=== PATIENT | male | born 1960 | race African-American/Black ===

== ENCOUNTER 2023-02-16 12:30 | Inpatient (IN) | payer OTHER ==
[~2023-02-16 12:30] MED LIST: Iopamidol-370 76% 500 ML MDV (1 ML CHARGE) ONE
[2023-02-16] MEDS ORDERED: Ondansetron ODT 4 MG TAB PO PRN (16:35)
[2023-02-16] MEDS ORDERED: Acetaminophen 325 MG TAB PO PRN (16:35)
[2023-02-16] MEDS ORDERED: Calcium Carbonate 500 MG ChewTAB PO PRN (16:35)
[2023-02-16] MEDS ORDERED: Ondansetron PF 4 MG/2 ML Vial IVP PRN (16:35)
[2023-02-16] MEDS ORDERED: hydrALAZINE 25 MG TAB PO PRN (16:48)
[2023-02-16 17:11] VITALS: BMI 28.0
[2023-02-16] MEDS: Cefepime 2 GM in Sodium Chloride 0.9% 100 ML IVPB SCH (19:13)
[2023-02-16] MEDS: Gabapentin 300 MG CAP PO SCH (20:40)
[2023-02-16] MEDS: Thiamine 100 MG TAB PO SCH (20:41)
[2023-02-16] MEDS: NIFEdipine XL 30 MG ER.TAB PO SCH (20:41)
[2023-02-16] MEDS: Senokot S 8.6-50 MG TAB PO SCH (20:41)
[2023-02-16] MEDS: Folic Acid 1 MG TAB PO SCH (20:41)
[2023-02-16] MEDS: Famotidine 20 MG TAB PO SCH (20:41)
[2023-02-16] MEDS: Multivit, Therapeutic 1 TAB PO SCH (20:41)
[2023-02-16] MEDS: HYDROcodone/Acetaminophen 5/325 mg Tablet PO PRN (20:42)
[2023-02-16] MEDS: Enoxaparin 40 MG (0.4 mL) SYRINGE SC SCH (20:43)
[2023-02-16] MEDS ORDERED: Vancomycin 1 GM in Premix 1 BAG IVPB SCH (21:00)
[2023-02-16 22:41] LABS: Vancomycin, Trough 12.6 ug/mL
[2023-02-16] MEDS ORDERED: Vancomycin (BATCH) 1.5 GM in Premix 1 BAG IVPB SCH (23:00)
[2023-02-17] MEDS: Vancomycin (BATCH) 1.75 GM in Premix 1 BAG IVPB SCH ×2 (00:18→11:04)
[2023-02-17] MEDS: HYDROcodone/Acetaminophen 5/325 mg Tablet PO PRN ×4 (00:45→21:16)
[2023-02-17] MEDS: Cefepime 2 GM in Sodium Chloride 0.9% 100 ML IVPB SCH ×2 (05:20→16:53)
[2023-02-17 06:08] LABS: #Basophils 0.1 thou/uL (0.0-0.2); #Eosinphils 0.2 thou/uL (0.0-0.7); #Monocytes 2.7 thou/uL (0.11-0.59); #Neutrophils 14.3 thou/uL (1.40-6.50); %Basophils 0.6 % (0.0-1.0); %Eosinophils 0.8 % (0.0-10.0); %Lymphocytes 8.9 % (21.0-51.0); %Monocytes 13.8 % (0.0-10.0); %Neutrophils 72.2 % (42.0-75.0); Hematocrit 36.4 % (42.0-52.0); Hemoglobin 12.1 g/dL (14.0-18.0); Mean Corpuscular HGB CONC 33.2 g/dL (32.0-36.0); Mean Corpuscular Hemoglobin 30.4 pg (27.0-31.0); Mean Corpuscular Volume 91.5 fl (78.0-98.0); Mean Platelet Volume 10.2 fL (7.4-10.4); Platelet Count 522 10x3/uL (130-400); Red Blood Cell (RBC) Count 3.98 mill/uL (4.70-6.10); White Blood Cell (WBC) Count 19.7 10x3/uL (4.8-10.8)
[2023-02-17] MEDS: NIFEdipine XL 30 MG ER.TAB PO SCH ×2 (08:17→20:52)
[2023-02-17] MEDS: Famotidine 20 MG TAB PO SCH ×2 (08:17→20:52)
[2023-02-17] MEDS: Senokot S 8.6-50 MG TAB PO SCH ×2 (08:17→20:57)
[2023-02-17] MEDS: Gabapentin 300 MG CAP PO SCH ×2 (08:17→20:49)
[2023-02-17] MEDS: Saccharomyces boulardii 250 MG CAP PO SCH (08:17)
[2023-02-17 12:20] LABS: Albumin 2.8 g/dL (3.4-4.8)
[2023-02-17 12:21] LABS: Chloride 103 mmol/L (98-107); Potassium 3.9 mmol/L (3.5-5.1); Sodium 137 mmol/L (136-145)
[2023-02-17 12:22] LABS: Calcium 9.3 mg/dL (7.8-10.44); Glucose 74 mg/dL (80-115)
[2023-02-17 12:23] LABS: Globulin 4.3 g/dL (2.4-3.5); Protein, Total 7.1 g/dL (5.8-8.1)
[2023-02-17 12:24] LABS: Anion Gap 16 mmol/L (10-20); Bilirubin, Total 1.2 mg/dL (0.2-1.2); Carbon Dioxide 22 mmol/L (23-31)
[2023-02-17 12:25] LABS: Alkaline Phosphatase 162 U/L (40-110)
[2023-02-17 12:26] LABS: Calc. Creatinine Clearance 117 mL/min (70-130); Estimated GFR 91
[2023-02-17 12:27] LABS: BUN (Urea Nitrogen) 11 mg/dL (8.4-25.7)
[2023-02-17 12:28] LABS: ALT (SGPT) 199 U/L (8-55); AST (SGOT) 88 U/L (5-34)
[2023-02-17] MEDS ORDERED: HYDROcodone/Acetaminophen 5/325 mg Tablet PO PRN (20:40)
[2023-02-17] MEDS: Multivit, Therapeutic 1 TAB PO SCH (20:52)
[2023-02-17] MEDS: Thiamine 100 MG TAB PO SCH (20:52)
[2023-02-17] MEDS: Folic Acid 1 MG TAB PO SCH (20:52)
[2023-02-17] MEDS: Enoxaparin 40 MG (0.4 mL) SYRINGE SC SCH (20:56)
[2023-02-18] MEDS: Vancomycin (BATCH) 1.75 GM in Premix 1 BAG IVPB SCH ×2 (01:00→11:28)
[2023-02-18] MEDS: Cefepime 2 GM in Sodium Chloride 0.9% 100 ML IVPB SCH ×2 (05:35→16:47)
[2023-02-18 06:17] LABS: Hemoglobin 10.9 g/dL (14.0-18.0); Manual Diff?? YES; Mean Corpuscular Hemoglobin 30.4 pg (27.0-31.0); Mean Corpuscular Volume 91.9 fl (78.0-98.0); Mean Platelet Volume 10.1 fL (7.4-10.4); Platelet Count 566 10x3/uL (130-400); RBC Distribution Width 13.1 % (11.5-14.5); Red Blood Cell (RBC) Count 3.59 mill/uL (4.70-6.10); White Blood Cell (WBC) Count 16.3 10x3/uL (4.8-10.8)
[2023-02-18 06:44] LABS: Delete Auto Diff?? YES
[2023-02-18 06:47] LABS: ALT (SGPT) 162 U/L (8-55); AST (SGOT) 88 U/L (5-34); Albumin 2.7 g/dL (3.4-4.8); Alkaline Phosphatase 170 U/L (40-110); Anion Gap 11 mmol/L (10-20); BUN (Urea Nitrogen) 10 mg/dL (8.4-25.7); Bilirubin, Total 0.8 mg/dL (0.2-1.2); Calc. Creatinine Clearance 133 mL/min (70-130); Calcium 8.9 mg/dL (7.8-10.44); Carbon Dioxide 26 mmol/L (23-31); Chloride 104 mmol/L (98-107); Estimated GFR 98; Globulin 4.2 g/dL (2.4-3.5); Glucose 101 mg/dL (80-115); Potassium 3.7 mmol/L (3.5-5.1); Protein, Total 6.9 g/dL (5.8-8.1); Sodium 137 mmol/L (136-145)
[2023-02-18 07:04] LABS: Hep A IgM AB Non-Reactive S/CO (NonReactive); Hep B Surf Ag Non-Reactive S/CO (NonReactive); Hep C IgG Ab Non-Reactive S/CO (NonReactive); Hep C Index 0.32 S/CO (0-0.79); Hepatitis B Core IgM Abs Non-Reactive S/CO (NonReactive)
[2023-02-18] MEDS: HYDROcodone/Acetaminophen 5/325 mg Tablet PO PRN ×3 (07:29→22:35)
[2023-02-18 08:13] LABS: Band 6 % (5-11); Eosinophils 1 % (0-10); Lymphocytes 11 % (21-51); Metamyelocyte 1 % (0-0); Monocytes 9 % (0-10); Myelocyte 1 % (0-0); Neutrophil 71 % (42-75)
[2023-02-18 08:14] LABS: Platelet Adequacy Comment Platelets Increased; Polychromasia SLIGHT = 2-3 cells (100X) (0-2/hpf)
[2023-02-18] MEDS: Saccharomyces boulardii 250 MG CAP PO SCH (08:24)
[2023-02-18] MEDS: NIFEdipine XL 30 MG ER.TAB PO SCH ×2 (08:24→22:33)
[2023-02-18] MEDS: Famotidine 20 MG TAB PO SCH ×2 (08:24→22:32)
[2023-02-18] MEDS: Senokot S 8.6-50 MG TAB PO SCH ×2 (08:24→22:34)
[2023-02-18] MEDS: Gabapentin 300 MG CAP PO SCH ×2 (08:24→22:32)
[2023-02-18 10:46] LABS: Vancomycin, Trough 18.1 ug/mL
[2023-02-18] MEDS ORDERED: PROPOFOL 20 ML ONE (12:15)
[2023-02-18] MEDS ORDERED: Lidocaine 1% PF 5 ML VIAL ONE (12:33)
[2023-02-18] MEDS ORDERED: fentaNYL PF 100 MCG/2 ML SYRINGE ONE ×2 (12:36→12:49)
[2023-02-18] MEDS ORDERED: Ondansetron PF 4 MG/2 ML Vial ONE (12:50)
[2023-02-18] MEDS ORDERED: Ondansetron HCl/PF 4 MG/2 ML Vial IVP PRN (13:12)
[2023-02-18] MEDS ORDERED: Promethazine HCl 25 MG/ML VIAL IM PRN (13:12)
[2023-02-18] MEDS ORDERED: fentaNYL 50 mcg/mL 1 mL Vial ONE ×2 (13:25→13:36)
[2023-02-18] MEDS: Lorazepam 1 MG TAB PO PRN (14:26)
[2023-02-18] MEDS: Enoxaparin 40 MG (0.4 mL) SYRINGE SC SCH (22:31)
[2023-02-18] MEDS: Multivit, Therapeutic 1 TAB PO SCH (22:34)
[2023-02-18] MEDS: Folic Acid 1 MG TAB PO SCH (22:34)
[2023-02-18] MEDS: Thiamine 100 MG TAB PO SCH (22:34)
[2023-02-19] MEDS: Vancomycin (BATCH) 1.75 GM in Premix 1 BAG IVPB SCH ×2 (00:45→11:50)
[2023-02-19] MEDS: HYDROcodone/Acetaminophen 5/325 mg Tablet PO PRN ×4 (04:19→21:59)
[2023-02-19] MEDS: Cefepime 2 GM in Sodium Chloride 0.9% 100 ML IVPB SCH (04:20)
[2023-02-19 07:09] LABS: Hematocrit 33.5 % (42.0-52.0); Hemoglobin 10.8 g/dL (14.0-18.0); Manual Diff?? YES; Mean Corpuscular HGB CONC 32.2 g/dL (32.0-36.0); Mean Corpuscular Hemoglobin 30.1 pg (27.0-31.0); Mean Corpuscular Volume 93.3 fl (78.0-98.0); Platelet Count 603 10x3/uL (130-400); RBC Distribution Width 13.4 % (11.5-14.5); Red Blood Cell (RBC) Count 3.59 mill/uL (4.70-6.10); White Blood Cell (WBC) Count 13.6 10x3/uL (4.8-10.8)
[2023-02-19 07:29] LABS: Delete Auto Diff?? YES
[2023-02-19 07:39] LABS: Anion Gap 10 mmol/L (10-20); BUN (Urea Nitrogen) 9 mg/dL (8.4-25.7); Calc. Creatinine Clearance 128 mL/min (70-130); Calcium 8.5 mg/dL (7.8-10.44); Carbon Dioxide 25 mmol/L (23-31); Chloride 104 mmol/L (98-107); Estimated GFR 97; Glucose 124 mg/dL (80-115); Potassium 3.8 mmol/L (3.5-5.1); Sodium 135 mmol/L (136-145)
[2023-02-19 07:40] LABS: Band 5 % (5-11); CellaVision Operator ID LAB.GE; Eosinophils 3 % (0-10); Lymphocytes 5 % (21-51); Monocytes 18 % (0-10); Neutrophil 65 % (42-75); Platelet Adequacy Comment Platelets Increased; Polychromasia MODERATE = 3-4 cells HPF (0-2); Reactive Lymphocytes 3 % (0-10); Total Cell Count 101
[2023-02-19] MEDS: Gabapentin 300 MG CAP PO SCH ×2 (08:08→21:57)
[2023-02-19] MEDS: Famotidine 20 MG TAB PO SCH ×2 (08:08→21:57)
[2023-02-19] MEDS: Senokot S 8.6-50 MG TAB PO SCH ×2 (08:09→22:01)
[2023-02-19] MEDS: Saccharomyces boulardii 250 MG CAP PO SCH (08:09)
[2023-02-19] MEDS: NIFEdipine XL 30 MG ER.TAB PO SCH ×2 (08:09→21:57)
[2023-02-19] MEDS: Morphine 4 MG/ML VIAL SLOW IVP PRN (09:34)
[2023-02-19] MEDS ORDERED: Lidocaine 4% Topical Sol 50 ML BOT TOP SCH (11:15)
[2023-02-19] MEDS: CEFAZOLIN 2 GM in Sodium Chloride 0.9% 100 ML IVPB SCH (16:14)
[2023-02-19] MEDS: Thiamine 100 MG TAB PO SCH (21:57)
[2023-02-19] MEDS: Folic Acid 1 MG TAB PO SCH (21:57)
[2023-02-19] MEDS: Enoxaparin 40 MG (0.4 mL) SYRINGE SC SCH (22:00)
[2023-02-19] MEDS: Multivit, Therapeutic 1 TAB PO SCH (22:00)
[2023-02-20] MEDS: Lorazepam 1 MG TAB PO PRN (00:05)
[2023-02-20] MEDS: CEFAZOLIN 2 GM in Sodium Chloride 0.9% 100 ML IVPB SCH ×4 (00:05→23:02)
[2023-02-20] MEDS: Senokot S 8.6-50 MG TAB PO SCH ×2 (08:30→21:12)
[2023-02-20] MEDS: NIFEdipine XL 30 MG ER.TAB PO SCH ×2 (08:31→21:13)
[2023-02-20] MEDS: Famotidine 20 MG TAB PO SCH ×2 (08:31→21:12)
[2023-02-20] MEDS: Saccharomyces boulardii 250 MG CAP PO SCH (08:31)
[2023-02-20] MEDS: Gabapentin 300 MG CAP PO SCH ×2 (08:31→21:13)
[2023-02-20] MEDS: HYDROcodone/Acetaminophen 5/325 mg Tablet PO PRN ×3 (08:31→21:12)
[2023-02-20 08:42] LABS: Hematocrit 34.2 % (42.0-52.0); Manual Diff?? YES; Mean Corpuscular HGB CONC 32.2 g/dL (32.0-36.0); Mean Corpuscular Hemoglobin 30.1 pg (27.0-31.0); Mean Corpuscular Volume 93.7 fl (78.0-98.0); Mean Platelet Volume 9.9 fL (7.4-10.4); Platelet Count 707 10x3/uL (130-400); RBC Distribution Width 13.8 % (11.5-14.5); Red Blood Cell (RBC) Count 3.65 mill/uL (4.70-6.10); White Blood Cell (WBC) Count 13.9 10x3/uL (4.8-10.8)
[2023-02-20 08:48] LABS: Delete Auto Diff?? YES
[2023-02-20 09:04] LABS: ALT (SGPT) 142 U/L (8-55); AST (SGOT) 98 U/L (5-34); Albumin 2.8 g/dL (3.4-4.8); Alkaline Phosphatase 152 U/L (40-110); Anion Gap 12 mmol/L (10-20); BUN (Urea Nitrogen) 9 mg/dL (8.4-25.7); Bilirubin, Total 0.7 mg/dL (0.2-1.2); Calc. Creatinine Clearance 121 mL/min (70-130); Calcium 8.9 mg/dL (7.8-10.44); Carbon Dioxide 26 mmol/L (23-31); Chloride 104 mmol/L (98-107); Estimated GFR 94; Globulin 4.8 g/dL (2.4-3.5); Glucose 105 mg/dL (80-115); Potassium 4.1 mmol/L (3.5-5.1); Protein, Total 7.6 g/dL (5.8-8.1); Sodium 138 mmol/L (136-145)
[2023-02-20 09:23] LABS: Anisocytosis SLIGHT = 6-15 cells HPF (0-5); Band 4 % (5-11); CellaVision Operator ID LAB.NR; Eosinophils 3 % (0-10); Hypochromia SLIGHT = 6-15 cells HPF (0-5); Large Platelets 3.4 % (0-5); Lymphocytes 6 % (21-51); Macrocytosis MODERATE=16-30 cells HPF (0-5); Monocytes 16 % (0-10); Neutrophil 65 % (42-75); Nucleated RBC (Manual Ct) 1 % (0); Platelet Adequacy Comment Platelets Increased; Polychromasia SLIGHT = 2-3 cells HPF (0-2); Promyelocytes 4 % (0-0); Smudge Cells 3.4 %; Total Cell Count 117
[2023-02-20] MEDS ORDERED: Iopamidol-370 76% 500 ML MDV (1 ML CHARGE) ONE (11:21)
[2023-02-20] MEDS: Thiamine 100 MG TAB PO SCH (21:12)
[2023-02-20] MEDS: Multivit, Therapeutic 1 TAB PO SCH (21:12)
[2023-02-20] MEDS: Folic Acid 1 MG TAB PO SCH (21:12)
[2023-02-20] MEDS: Enoxaparin 40 MG (0.4 mL) SYRINGE SC SCH (21:14)
[2023-02-21] MEDS: Lorazepam 1 MG TAB PO PRN ×3 (01:18→23:05)
[2023-02-21] MEDS: HYDROcodone/Acetaminophen 5/325 mg Tablet PO PRN ×4 (04:11→23:05)
[2023-02-21] MEDS: CEFAZOLIN 2 GM in Sodium Chloride 0.9% 100 ML IVPB SCH ×3 (08:11→23:05)
[2023-02-21] MEDS: NIFEdipine XL 30 MG ER.TAB PO SCH ×2 (08:11→20:49)
[2023-02-21] MEDS: Gabapentin 300 MG CAP PO SCH ×2 (08:11→20:48)
[2023-02-21] MEDS: Senokot S 8.6-50 MG TAB PO SCH ×2 (08:12→20:49)
[2023-02-21] MEDS: Saccharomyces boulardii 250 MG CAP PO SCH (08:13)
[2023-02-21] MEDS: Famotidine 20 MG TAB PO SCH ×2 (08:13→20:48)
[2023-02-21 09:09] LABS: Hematocrit 32.8 % (42.0-52.0); Hemoglobin 10.6 g/dL (14.0-18.0); Manual Diff?? YES; Mean Corpuscular HGB CONC 32.3 g/dL (32.0-36.0); Mean Corpuscular Hemoglobin 30.8 pg (27.0-31.0); Mean Corpuscular Volume 95.3 fl (78.0-98.0); Mean Platelet Volume 9.5 fL (7.4-10.4); Platelet Count 682 10x3/uL (130-400); RBC Distribution Width 13.7 % (11.5-14.5); Red Blood Cell (RBC) Count 3.44 mill/uL (4.70-6.10); White Blood Cell (WBC) Count 11.5 10x3/uL (4.8-10.8)
[2023-02-21 09:15] LABS: Delete Auto Diff?? YES
[2023-02-21 09:38] LABS: Anion Gap 12 mmol/L (10-20); BUN (Urea Nitrogen) 9 mg/dL (8.4-25.7); Calc. Creatinine Clearance 122 mL/min (70-130); Calcium 8.6 mg/dL (7.8-10.44); Carbon Dioxide 23 mmol/L (23-31); Chloride 104 mmol/L (98-107); Estimated GFR 95; Glucose 143 mg/dL (80-115); Potassium 3.7 mmol/L (3.5-5.1); Sodium 135 mmol/L (136-145)
[2023-02-21 10:26] LABS: Lymphocytes 18 % (21-51); Monocytes 10 % (0-10); Neutrophil 72 % (42-75)
[2023-02-21 10:31] LABS: RBC Morph Comment Within Normal Limits
[2023-02-21 10:32] LABS: Platelet Adequacy Comment Platelets Increased; Smudge Cells SLIGHT
[2023-02-21] MEDS: Folic Acid 1 MG TAB PO SCH (20:48)
[2023-02-21] MEDS: Thiamine 100 MG TAB PO SCH (20:48)
[2023-02-21] MEDS: Enoxaparin 40 MG (0.4 mL) SYRINGE SC SCH (20:49)
[2023-02-21] MEDS: Multivit, Therapeutic 1 TAB PO SCH (20:49)
[2023-02-21] MEDS: Morphine 4 MG/ML VIAL SLOW IVP PRN (20:54)
[2023-02-22 07:37] LABS: Hematocrit 32.7 % (42.0-52.0); Hemoglobin 10.5 g/dL (14.0-18.0); Manual Diff?? YES; Mean Corpuscular HGB CONC 32.1 g/dL (32.0-36.0); Mean Corpuscular Hemoglobin 30.5 pg (27.0-31.0); Mean Corpuscular Volume 95.1 fl (78.0-98.0); Mean Platelet Volume 9.5 fL (7.4-10.4); Platelet Count 745 10x3/uL (130-400); RBC Distribution Width 13.7 % (11.5-14.5); Red Blood Cell (RBC) Count 3.44 mill/uL (4.70-6.10); White Blood Cell (WBC) Count 11.4 10x3/uL (4.8-10.8)
[2023-02-22 07:56] LABS: Delete Auto Diff?? YES
[2023-02-22 07:57] LABS: ALT (SGPT) 91 U/L (8-55); AST (SGOT) 66 U/L (5-34); Albumin 2.8 g/dL (3.4-4.8); Alkaline Phosphatase 134 U/L (40-110); Anion Gap 10 mmol/L (10-20); BUN (Urea Nitrogen) 12 mg/dL (8.4-25.7); Bilirubin, Total 0.3 mg/dL (0.2-1.2); Calc. Creatinine Clearance 115 mL/min (70-130); Calcium 8.8 mg/dL (7.8-10.44); Carbon Dioxide 25 mmol/L (23-31); Chloride 105 mmol/L (98-107); Estimated GFR 88; Glucose 109 mg/dL (80-115); Magnesium 2.3 mg/dL (1.6-2.6); Potassium 3.9 mmol/L (3.5-5.1); Protein, Total 7.8 g/dL (5.8-8.1); Sodium 136 mmol/L (136-145)
[2023-02-22] MEDS: NIFEdipine XL 30 MG ER.TAB PO SCH ×2 (08:11→19:55)
[2023-02-22] MEDS: Senokot S 8.6-50 MG TAB PO SCH ×2 (08:11→19:55)
[2023-02-22] MEDS: CEFAZOLIN 2 GM in Sodium Chloride 0.9% 100 ML IVPB SCH (08:12)
[2023-02-22] MEDS: Famotidine 20 MG TAB PO SCH ×2 (08:12→19:55)
[2023-02-22] MEDS: Saccharomyces boulardii 250 MG CAP PO SCH (08:12)
[2023-02-22] MEDS: HYDROcodone/Acetaminophen 5/325 mg Tablet PO PRN ×3 (08:12→23:20)
[2023-02-22] MEDS: Gabapentin 300 MG CAP PO SCH ×2 (08:12→19:54)
[2023-02-22 09:28] LABS: Eosinophils 2 % (0-10); Lymphocytes 20 % (21-51); Monocytes 12 % (0-10); Neutrophil 66 % (42-75); Polychromasia SLIGHT = 2-3 cells (100X) (0-2/hpf)
[2023-02-22 09:29] LABS: Platelet Adequacy Comment Platelets Increased; Small Platelets SLIGHT HPF (0-15)
[2023-02-22] MEDS ORDERED: Cefadroxil Hydrate 500 mg/5 ml Suspenion PO SCH (10:00)
[2023-02-22] MEDS: Cefadroxil Hydrate 500 mg/5 ml Suspenion PO SCH (19:54)
[2023-02-22] MEDS: Multivit, Therapeutic 1 TAB PO SCH (19:55)
[2023-02-22] MEDS: Thiamine 100 MG TAB PO SCH (19:55)
[2023-02-22] MEDS: Lorazepam 1 MG TAB PO PRN (19:56)
[2023-02-22] MEDS: Folic Acid 1 MG TAB PO SCH (19:57)
[2023-02-22] MEDS: Morphine 4 MG/ML VIAL SLOW IVP PRN (19:57)
[2023-02-22] MEDS: Enoxaparin 40 MG (0.4 mL) SYRINGE SC SCH (19:57)
[2023-02-23] MEDS: HYDROcodone/Acetaminophen 5/325 mg Tablet PO PRN ×2 (06:34→22:30)
[2023-02-23] MEDS: Gabapentin 300 MG CAP PO SCH ×2 (08:15→21:23)
[2023-02-23] MEDS: Saccharomyces boulardii 250 MG CAP PO SCH (08:15)
[2023-02-23] MEDS: Senokot S 8.6-50 MG TAB PO SCH ×2 (08:15→21:24)
[2023-02-23] MEDS: Cefadroxil Hydrate 500 mg/5 ml Suspenion PO SCH ×2 (08:15→21:24)
[2023-02-23] MEDS: NIFEdipine XL 30 MG ER.TAB PO SCH ×2 (08:15→21:24)
[2023-02-23] MEDS: Famotidine 20 MG TAB PO SCH ×2 (08:15→21:24)
[2023-02-23 12:53] LABS: Manual Diff?? YES; Mean Corpuscular HGB CONC 32.5 g/dL (32.0-36.0); Mean Corpuscular Hemoglobin 30.7 pg (27.0-31.0); Mean Corpuscular Volume 94.3 fl (78.0-98.0); Mean Platelet Volume 9.8 fL (7.4-10.4); Platelet Count 868 10x3/uL (130-400); RBC Distribution Width 13.7 % (11.5-14.5); Red Blood Cell (RBC) Count 4.24 mill/uL (4.70-6.10)
[2023-02-23 12:57] LABS: Delete Auto Diff?? YES
[2023-02-23 13:09] LABS: Anion Gap 12 mmol/L (10-20); BUN (Urea Nitrogen) 13 mg/dL (8.4-25.7); Calc. Creatinine Clearance 120 mL/min (70-130); Calcium 9.5 mg/dL (7.8-10.44); Carbon Dioxide 24 mmol/L (23-31); Chloride 103 mmol/L (98-107); Estimated GFR 93; Glucose 92 mg/dL (80-115); Potassium 4.4 mmol/L (3.5-5.1); Sodium 135 mmol/L (136-145)
[2023-02-23 14:01] LABS: Band 2 % (5-11); Eosinophils 4 % (0-10); Lymphocytes 13 % (21-51); Metamyelocyte 1 % (0-0); Monocytes 6 % (0-10); Myelocyte 1 % (0-0); Neutrophil 73 % (42-75); Platelet Adequacy Comment Platelets Increased; RBC Morph Comment Within Normal Limits
[2023-02-23] MEDS: Morphine 4 MG/ML VIAL SLOW IVP PRN (19:09)
[2023-02-23] MEDS: Thiamine 100 MG TAB PO SCH (21:24)
[2023-02-23] MEDS: Multivit, Therapeutic 1 TAB PO SCH (21:24)
[2023-02-23] MEDS: Enoxaparin 40 MG (0.4 mL) SYRINGE SC SCH (21:24)
[2023-02-23] MEDS: Folic Acid 1 MG TAB PO SCH (21:25)
[2023-02-23] MEDS: Lorazepam 1 MG TAB PO PRN (22:30)
[2023-02-24 06:34] LABS: #Basophils 0.1 thou/uL (0.0-0.2); #Eosinphils 0.2 thou/uL (0.0-0.7); #Monocytes 0.8 thou/uL (0.11-0.59); #Neutrophils 5.6 thou/uL (1.40-6.50); %Basophils 0.7 % (0.0-1.0); %Lymphocytes 28.8 % (21.0-51.0); %Monocytes 8.4 % (0.0-10.0); %Neutrophils 56.2 % (42.0-75.0); Hematocrit 37.3 % (42.0-52.0); Hemoglobin 11.9 g/dL (14.0-18.0); Mean Corpuscular HGB CONC 31.9 g/dL (32.0-36.0); Mean Corpuscular Hemoglobin 30.5 pg (27.0-31.0); Mean Corpuscular Volume 95.6 fl (78.0-98.0); Mean Platelet Volume 9.4 fL (7.4-10.4); Platelet Count 872 10x3/uL (130-400); RBC Distribution Width 13.7 % (11.5-14.5)
[2023-02-24 06:57] LABS: ALT (SGPT) 62 U/L (8-55); AST (SGOT) 36 U/L (5-34); Albumin 3.1 g/dL (3.4-4.8); Alkaline Phosphatase 122 U/L (40-110); Anion Gap 12 mmol/L (10-20); BUN (Urea Nitrogen) 15 mg/dL (8.4-25.7); Bilirubin, Total 0.4 mg/dL (0.2-1.2); Calc. Creatinine Clearance 114 mL/min (70-130); Calcium 9.1 mg/dL (7.8-10.44); Carbon Dioxide 26 mmol/L (23-31); Chloride 103 mmol/L (98-107); Estimated GFR 87; Globulin 5.4 g/dL (2.4-3.5); Glucose 97 mg/dL (80-115); Potassium 4.4 mmol/L (3.5-5.1); Protein, Total 8.5 g/dL (5.8-8.1); Sodium 137 mmol/L (136-145)
[2023-02-24] MEDS: Senokot S 8.6-50 MG TAB PO SCH ×2 (08:22→19:24)
[2023-02-24] MEDS: Gabapentin 300 MG CAP PO SCH ×2 (08:22→19:23)
[2023-02-24] MEDS: Cefadroxil Hydrate 500 mg/5 ml Suspenion PO SCH ×2 (08:22→19:21)
[2023-02-24] MEDS: Famotidine 20 MG TAB PO SCH ×2 (08:22→19:21)
[2023-02-24] MEDS: Saccharomyces boulardii 250 MG CAP PO SCH (08:22)
[2023-02-24] MEDS: HYDROcodone/Acetaminophen 5/325 mg Tablet PO PRN ×3 (08:22→21:08)
[2023-02-24] MEDS: NIFEdipine XL 30 MG ER.TAB PO SCH ×2 (08:23→19:23)
[2023-02-24] MEDS: Lorazepam 1 MG TAB PO PRN ×2 (08:24→19:25)
[2023-02-24] MEDS ORDERED: Lidocaine 4% Topical Sol 50 ML BOT TOP PRN (09:39)
[2023-02-24] MEDS ORDERED: Lidocaine 4% Topical Sol 50 ML BOT TOP SCH (09:45)
[2023-02-24] MEDS: Multivit, Therapeutic 1 TAB PO SCH (19:22)
[2023-02-24] MEDS: Folic Acid 1 MG TAB PO SCH (19:23)
[2023-02-24] MEDS: Thiamine 100 MG TAB PO SCH (19:23)
[2023-02-24] MEDS: Enoxaparin 40 MG (0.4 mL) SYRINGE SC SCH (19:24)
[2023-02-24] MEDS: Morphine 4 MG/ML VIAL SLOW IVP PRN (19:26)
[2023-02-25] MEDS: HYDROcodone/Acetaminophen 5/325 mg Tablet PO PRN ×3 (05:38→20:16)
[2023-02-25] MEDS: NIFEdipine XL 30 MG ER.TAB PO SCH ×2 (07:55→20:13)
[2023-02-25] MEDS: Saccharomyces boulardii 250 MG CAP PO SCH (07:55)
[2023-02-25] MEDS: Senokot S 8.6-50 MG TAB PO SCH ×2 (07:55→20:14)
[2023-02-25] MEDS: Cefadroxil Hydrate 500 mg/5 ml Suspenion PO SCH ×2 (07:55→20:13)
[2023-02-25] MEDS: Famotidine 20 MG TAB PO SCH ×2 (07:56→20:13)
[2023-02-25] MEDS: Gabapentin 300 MG CAP PO SCH ×2 (07:56→20:14)
[2023-02-25] MEDS: Folic Acid 1 MG TAB PO SCH (20:13)
[2023-02-25] MEDS: Multivit, Therapeutic 1 TAB PO SCH (20:13)
[2023-02-25] MEDS: Thiamine 100 MG TAB PO SCH (20:13)
[2023-02-25] MEDS: Enoxaparin 40 MG (0.4 mL) SYRINGE SC SCH (20:14)
[2023-02-25] MEDS: Lorazepam 1 MG TAB PO PRN (20:16)
[2023-02-26] MEDS: HYDROcodone/Acetaminophen 5/325 mg Tablet PO PRN ×3 (07:06→21:09)
[2023-02-26] MEDS: Morphine 4 MG/ML VIAL SLOW IVP PRN (08:41)
[2023-02-26] MEDS: Gabapentin 300 MG CAP PO SCH ×2 (08:46→21:07)
[2023-02-26] MEDS: NIFEdipine XL 30 MG ER.TAB PO SCH ×2 (08:47→21:08)
[2023-02-26] MEDS: Senokot S 8.6-50 MG TAB PO SCH ×2 (08:49→21:08)
[2023-02-26] MEDS: Famotidine 20 MG TAB PO SCH ×2 (08:49→21:09)
[2023-02-26] MEDS: Saccharomyces boulardii 250 MG CAP PO SCH (08:49)
[2023-02-26] MEDS: Cefadroxil Hydrate 500 mg/5 ml Suspenion PO SCH ×2 (08:50→21:07)
[2023-02-26] MEDS: Lorazepam 1 MG TAB PO PRN (21:08)
[2023-02-26] MEDS: Folic Acid 1 MG TAB PO SCH (21:08)
[2023-02-26] MEDS: Multivit, Therapeutic 1 TAB PO SCH (21:09)
[2023-02-26] MEDS: Thiamine 100 MG TAB PO SCH (21:10)
[2023-02-26] MEDS: Enoxaparin 40 MG (0.4 mL) SYRINGE SC SCH (21:10)
[2023-02-27] MEDS: Gabapentin 300 MG CAP PO SCH ×2 (09:14→20:39)
[2023-02-27] MEDS: Senokot S 8.6-50 MG TAB PO SCH ×2 (09:15→20:39)
[2023-02-27] MEDS: Famotidine 20 MG TAB PO SCH ×2 (09:16→20:39)
[2023-02-27] MEDS: Cefadroxil Hydrate 500 mg/5 ml Suspenion PO SCH ×2 (09:16→20:39)
[2023-02-27] MEDS: HYDROcodone/Acetaminophen 5/325 mg Tablet PO PRN ×3 (09:16→23:53)
[2023-02-27] MEDS: Saccharomyces boulardii 250 MG CAP PO SCH (09:16)
[2023-02-27] MEDS: NIFEdipine XL 30 MG ER.TAB PO SCH ×2 (09:16→20:39)
[2023-02-27] MEDS: Folic Acid 1 MG TAB PO SCH (20:39)
[2023-02-27] MEDS: Multivit, Therapeutic 1 TAB PO SCH (20:39)
[2023-02-27] MEDS: Thiamine 100 MG TAB PO SCH (20:39)
[2023-02-27] MEDS: Enoxaparin 40 MG (0.4 mL) SYRINGE SC SCH (20:39)
[2023-02-27] MEDS: Morphine 4 MG/ML VIAL SLOW IVP PRN (20:50)
[2023-02-27] MEDS: Lorazepam 1 MG TAB PO PRN (23:53)
[2023-02-28] MEDS: Cefadroxil Hydrate 500 mg/5 ml Suspenion PO SCH ×2 (08:49→20:38)
[2023-02-28] MEDS: Morphine 4 MG/ML VIAL SLOW IVP PRN (08:52)
[2023-02-28] MEDS: Senokot S 8.6-50 MG TAB PO SCH ×2 (08:53→20:41)
[2023-02-28] MEDS: Gabapentin 300 MG CAP PO SCH ×2 (08:53→20:40)
[2023-02-28] MEDS: Saccharomyces boulardii 250 MG CAP PO SCH (08:54)
[2023-02-28] MEDS: Famotidine 20 MG TAB PO SCH ×2 (08:54→20:39)
[2023-02-28] MEDS: NIFEdipine XL 30 MG ER.TAB PO SCH ×2 (08:54→20:40)
[2023-02-28] MEDS ORDERED: Morphine 4 MG/ML VIAL SLOW IVP PRN (14:45)
[2023-02-28] MEDS ORDERED: Lorazepam 1 MG TAB PO PRN (14:45)
[2023-02-28] MEDS: HYDROcodone/Acetaminophen 5/325 mg Tablet PO PRN (18:18)
[2023-02-28] MEDS: Thiamine 100 MG TAB PO SCH (20:39)
[2023-02-28] MEDS: Multivit, Therapeutic 1 TAB PO SCH (20:39)
[2023-02-28] MEDS: Folic Acid 1 MG TAB PO SCH (20:39)
[2023-02-28] MEDS: Lorazepam 0.5 MG TAB PO PRN (20:40)
[2023-02-28] MEDS: Enoxaparin 40 MG (0.4 mL) SYRINGE SC SCH (20:40)
[2023-03-01 06:41] LABS: Hematocrit 40.9 % (42.0-52.0); Hemoglobin 12.8 g/dL (14.0-18.0); Mean Corpuscular HGB CONC 31.3 g/dL (32.0-36.0); Platelet Count 613 10x3/uL (130-400); RBC Distribution Width 13.7 % (11.5-14.5); Red Blood Cell (RBC) Count 4.26 mill/uL (4.70-6.10); White Blood Cell (WBC) Count 6.9 10x3/uL (4.8-10.8)
[2023-03-01 07:01] LABS: Anion Gap 12 mmol/L (10-20); BUN (Urea Nitrogen) 19 mg/dL (8.4-25.7); Calc. Creatinine Clearance 106 mL/min (70-130); Calcium 9.4 mg/dL (7.8-10.44); Carbon Dioxide 22 mmol/L (23-31); Chloride 107 mmol/L (98-107); Estimated GFR 80; Glucose 102 mg/dL (80-115); Potassium 4.2 mmol/L (3.5-5.1); Sodium 137 mmol/L (136-145)
[2023-03-01] MEDS: Senokot S 8.6-50 MG TAB PO SCH ×2 (09:04→20:38)
[2023-03-01] MEDS: NIFEdipine XL 30 MG ER.TAB PO SCH ×2 (09:04→20:37)
[2023-03-01] MEDS: Famotidine 20 MG TAB PO SCH ×2 (09:05→20:37)
[2023-03-01] MEDS: Cefadroxil Hydrate 500 mg/5 ml Suspenion PO SCH ×2 (09:05→22:20)
[2023-03-01] MEDS: Gabapentin 300 MG CAP PO SCH ×2 (09:05→20:37)
[2023-03-01] MEDS: Saccharomyces boulardii 250 MG CAP PO SCH (09:05)
[2023-03-01] MEDS: HYDROcodone/Acetaminophen 5/325 mg Tablet PO PRN ×3 (09:05→22:20)
[2023-03-01] MEDS ORDERED: HYDROcodone/Acetaminophen 5/325 mg Tablet PO SCH (17:00)
[2023-03-01] MEDS: Enoxaparin 40 MG (0.4 mL) SYRINGE SC SCH (20:35)
[2023-03-01] MEDS: Folic Acid 1 MG TAB PO SCH (20:37)
[2023-03-01] MEDS: Multivit, Therapeutic 1 TAB PO SCH (20:37)
[2023-03-01] MEDS: Thiamine 100 MG TAB PO SCH (20:37)
[2023-03-01] MEDS: Lorazepam 0.5 MG TAB PO PRN (22:21)
[2023-03-02] MEDS: Famotidine 20 MG TAB PO SCH ×2 (08:54→20:54)
[2023-03-02] MEDS: Saccharomyces boulardii 250 MG CAP PO SCH (08:54)
[2023-03-02] MEDS: Gabapentin 300 MG CAP PO SCH ×2 (08:54→20:54)
[2023-03-02] MEDS: NIFEdipine XL 30 MG ER.TAB PO SCH ×2 (08:54→20:54)
[2023-03-02] MEDS: HYDROcodone/Acetaminophen 5/325 mg Tablet PO PRN ×2 (08:55→18:31)
[2023-03-02] MEDS: Senokot S 8.6-50 MG TAB PO SCH ×2 (09:22→20:58)
[2023-03-02] MEDS: Cefadroxil Hydrate 500 mg/5 ml Suspenion PO SCH ×2 (10:42→20:55)
[2023-03-02] MEDS: Thiamine 100 MG TAB PO SCH (20:54)
[2023-03-02] MEDS: Multivit, Therapeutic 1 TAB PO SCH (20:54)
[2023-03-02] MEDS: Folic Acid 1 MG TAB PO SCH (20:54)
[2023-03-02] MEDS: Enoxaparin 40 MG (0.4 mL) SYRINGE SC SCH (21:00)
[2023-03-03] MEDS: HYDROcodone/Acetaminophen 5/325 mg Tablet PO PRN ×3 (04:14→19:52)
[2023-03-03] MEDS: Cefadroxil Hydrate 500 mg/5 ml Suspenion PO SCH ×2 (09:17→19:50)
[2023-03-03] MEDS: Famotidine 20 MG TAB PO SCH ×2 (09:17→19:52)
[2023-03-03] MEDS: Gabapentin 300 MG CAP PO SCH ×2 (09:17→19:50)
[2023-03-03] MEDS: Senokot S 8.6-50 MG TAB PO SCH ×2 (09:18→20:38)
[2023-03-03] MEDS: NIFEdipine XL 30 MG ER.TAB PO SCH ×2 (09:18→19:51)
[2023-03-03] MEDS: Saccharomyces boulardii 250 MG CAP PO SCH (09:18)
[2023-03-03] MEDS: Multivit, Therapeutic 1 TAB PO SCH (19:52)
[2023-03-03] MEDS: Thiamine 100 MG TAB PO SCH (19:52)
[2023-03-03] MEDS: Folic Acid 1 MG TAB PO SCH (19:53)
[2023-03-03] MEDS: Enoxaparin 40 MG (0.4 mL) SYRINGE SC SCH (19:53)
[2023-03-04] MEDS: Famotidine 20 MG TAB PO SCH ×2 (08:44→21:42)
[2023-03-04] MEDS: Gabapentin 300 MG CAP PO SCH ×2 (08:44→21:43)
[2023-03-04] MEDS: Cefadroxil Hydrate 500 mg/5 ml Suspenion PO SCH ×2 (08:44→21:43)
[2023-03-04] MEDS: NIFEdipine XL 30 MG ER.TAB PO SCH ×2 (08:45→21:41)
[2023-03-04] MEDS: Saccharomyces boulardii 250 MG CAP PO SCH (08:45)
[2023-03-04] MEDS: Senokot S 8.6-50 MG TAB PO SCH ×2 (08:45→21:42)
[2023-03-04] MEDS: HYDROcodone/Acetaminophen 5/325 mg Tablet PO PRN (18:15)
[2023-03-04] MEDS: Multivit, Therapeutic 1 TAB PO SCH (21:42)
[2023-03-04] MEDS: Enoxaparin 40 MG (0.4 mL) SYRINGE SC SCH (21:42)
[2023-03-04] MEDS: Folic Acid 1 MG TAB PO SCH (21:42)
[2023-03-04] MEDS: Thiamine 100 MG TAB PO SCH (21:42)
[2023-03-05] MEDS: HYDROcodone/Acetaminophen 5/325 mg Tablet PO PRN ×2 (00:47→09:32)
[2023-03-05] MEDS: Lorazepam 0.5 MG TAB PO PRN (00:47)
[2023-03-05] MEDS ORDERED: Cefadroxil Hydrate 500 mg/5 ml Suspenion PO SCH ×2 (09:00→21:00)
[2023-03-05] MEDS: Saccharomyces boulardii 250 MG CAP PO SCH (09:29)
[2023-03-05] MEDS: NIFEdipine XL 30 MG ER.TAB PO SCH (09:29)
[2023-03-05] MEDS: Famotidine 20 MG TAB PO SCH (09:29)
[2023-03-05] MEDS: Gabapentin 300 MG CAP PO SCH (09:30)
[2023-03-05] MEDS: Senokot S 8.6-50 MG TAB PO SCH (09:30)
[2023-03-05] MEDS: Cefadroxil Hydrate 500 mg/5 ml Suspenion PO SCH (09:31)
[2023-03-05 12:13] VITALS: BP 152/93; TEMP 98.5
[2023-03-06] MEDS ORDERED: NIFEdipine XL 30 MG ER.TAB PO SCH ×2 (09:00)
== END 2023-03-05 12:09 | disposition home or self-care (01) | DRG 872 ==
LOC: T4-B 16:27
PROVIDERS: ADMIT Hospitalist; ATTEND Student in an Organized Health Care Education/Training Program
PROC: 3E03329 Introduction of Other Anti-infective into Peripheral Vein, Percutaneous Approach (ICD-10-PCS; 2023-02-16)
PROC: 0J9P0ZZ Drainage of Left Lower Leg Subcutaneous Tissue and Fascia, Open Approach (ICD-10-PCS; principal; 2023-02-18)
DX: A41.01 Sepsis due to Methicillin susceptible Staphylococcus aureus (principal); L02.416 Cutaneous abscess of left lower limb; L03.116 Cellulitis of left lower limb; Z59.01 Sheltered homelessness; G62.9 Polyneuropathy, unspecified; R74.01 Elevation of levels of liver transaminase levels; L08.9 Local infection of the skin and subcutaneous tissue, unspecified; F10.90 Alcohol use, unspecified, uncomplicated; M54.50 Low back pain, unspecified; G89.29 Other chronic pain; M70.42 Prepatellar bursitis, left knee; D64.9 Anemia, unspecified; K21.9 Gastro-esophageal reflux disease without esophagitis; M10.9 Gout, unspecified; I12.9 Hypertensive chronic kidney disease with stage 1 through stage 4 chronic kidney disease, or unspecified chronic kidney disease; N18.2 Chronic kidney disease, stage 2 (mild); M70.862 Other soft tissue disorders related to use, overuse and pressure, left lower leg
CPT/HCPCS: 36415; 74177; 80048; 80053; 80074; 80202; 83735; 85025; 85027; 86140; 87070; 87077; 87186; 87205; 97139; J0692; J1650; J2270; J2405; J2704; J3010; J3370; J3490; Q9967

== ENCOUNTER 2023-03-10 07:13 | Emergency (ER) | payer OTHER | END 2023-03-10 08:35 | disposition home or self-care (01) | LOC: ERS 07:13 | DX: Z48.01 Encounter for change or removal of surgical wound dressing (principal); I10 Essential (primary) hypertension; Z79.899 Other long term (current) drug therapy | CPT/HCPCS: 99282 ==